=== PATIENT | female | born 1965 | race Caucasian/White ===

== ENCOUNTER 2018-05-22 15:59 | Inpatient (IN) | payer BC ==
[2018-05-22] MEDS ORDERED: NITROGLYCERIN SL TABS 0.4 MG TAB SUBLINGUAL STA ×3 (16:27)
[2018-05-22] MEDS ORDERED: ASPIRIN 81 MG PO STA (16:27)
[2018-05-22] MEDS ORDERED: SODIUM CHLORIDE 0.9% 1,000 ML IV STA (16:27)
--- NOTE | 2018-05-22 16:32 | ED ---
General Adult HPI - General Chief complaint: Chest Pain Stated complaint: chest pain Time Seen by Provider: 05/22/18 16:07 Source: patient, RN notes reviewed Mode of arrival: ambulatory Limitations: no limitations - History of Present Illness Initial comments: Patient is a pleasant 52-year-old female presenting to the emergency Department with complaints of chest discomfort. Onset of symptoms was just prior to arrival. Patient has tightness in her chest. no radiation. No dyspnea however patient admits symptoms do worsen with deep breaths. No nausea. Patient does feel sweaty. Discomfort is somewhat severe at this time. No history of similar symptoms previously. - Related Data Home Medications Medication Instructions Recorded Confirmed Naproxen Sodium [Aleve] 220 mg PO Q12HR PRN 05/22/18 05/22/18 Allergies Allergy/AdvReac Type Severity Reaction Status Date / Time No Known Allergies Allergy Verified 05/22/18 16:42 Review of Systems ROS Statement: Those systems with pertinent positive or pertinent negative responses have been documented in the HPI. ROS Other: All systems not noted in ROS Statement are negative. Constitutional: Denies: fever Eyes: Denies: eye pain ENT: Denies: ear pain Respiratory: Denies: cough, dyspnea Cardiovascular: Reports: chest pain Endocrine: Denies: fatigue Gastrointestinal: Denies: abdominal pain Genitourinary: Denies: dysuria Musculoskeletal: Denies: back pain Skin: Denies: rash Neurological: Denies: weakness Past Medical History Past Medical History: COPD Additional Past Medical History / Comment(s): right hand crushed at work, had sx. History of Any Multi-Drug Resistant Organisms: None Reported Past Surgical History: No Surgical Hx Reported Past Anesthesia/Blood Transfusion Reactions: No Reported Reaction Past Psychological History: No Psychological Hx Reported Smoking Status: Current every day smoker Past Alcohol Use History: None Reported Past Drug Use History: Marijuana General Exam Limitations: no limitations General appearance: alert, other (Patient does appear uncomfortable) Head exam: Present: normocephalic Eye exam: Present: normal appearance Neck exam: Present: normal inspection Respiratory exam: Present: normal lung sounds bilaterally. Absent: chest wall tenderness Cardiovascular Exam: Present: regular rate, normal rhythm Expanded Peripheral pulses: 2+: Radial (R), Radial (L), Dorsalis Pedis (R), Dorsalis Pedis (L) GI/Abdominal exam: Present: soft. Absent: tenderness Extremities exam: Present: normal inspection. Absent: pedal edema, calf tenderness Neurological exam: Present: alert Psychiatric exam: Present: normal affect, normal mood Skin exam: Present: normal color Course Vital Signs 05/22/18 05/22/18 05/22/18 16:01 16:20 16:30 Temperature 98.4 F Pulse Rate 80 79 82 Respiratory 24 24 22 Rate Blood Pressure 138/82 144/93 150/98 O2 Sat by Pulse 99 99 99 Oximetry 05/22/18 16:47 Temperature Pulse Rate 79 Respiratory 20 Rate Blood Pressure 149/91 O2 Sat by Pulse 98 Oximetry - Reevaluation(s) Reevaluation #1: 05/22/18 16:30 STEMI alert was called. Case was discussed in detail with Dr. Paige who did request EKG faxed to him. 05/22/18 16:33 Repeat EKG at 1622 shows sinus rhythm at 75. NJ 122. QRS 92. QT 404. QTC 451. Normal axis. Normal QRS. Inferior ST elevation. 05/22/18 16:35 Old EKG reviewed from 11/15/2014. Case was discussed with Dr. Galvan, covering for Dr. Eddy, who will admit. EKG Findings - EKG Comments: EKG Findings:: EKG shows normal sinus rhythm at 80. NJ 124. QRS 94. QT 388. QTC 447. Normal axis. Normal QRS. Inferior ST elevation. Medical Decision Making - Medical Decision Making Patient reevaluated and improved with nitroglycerin. Patient and family updated on results and plan. Cardiology did call back and plan is to take patient to the [facility]. - Lab Data Result diagrams: 05/22/18 16:30 Lab Results 05/22/18 Range/Units 16:30 WBC 10.1 (3.8-10.6) k/uL RBC 5.02 (3.80-5.40) m/uL Hgb 15.7 (11.4-16.0) gm/dL Hct 47.1 H (34.0-46.0) % MCV 93.8 (80.0-100.0) fL MCH 31.2 (25.0-35.0) pg MCHC 33.3 (31.0-37.0) g/dL RDW 13.2 (11.5-15.5) % Plt Count 311 (150-450) k/uL Neutrophils % 56 % Lymphocytes % 36 % Monocytes % 4 % Eosinophils % 3 % Basophils % 0 % Neutrophils # 5.7 (1.3-7.7) k/uL Lymphocytes # 3.6 (1.0-4.8) k/uL Monocytes # 0.4 (0-1.0) k/uL Eosinophils # 0.3 (0-0.7) k/uL Basophils # 0.0 (0-0.2) k/uL - Radiology Data Interpreted by me: Chest x-ray shows no acute process Critical Care Time Critical Care Time: Yes Total Critical Care Time: 32 Disposition Clinical Impression: ST elevation myocardial infarction (STEMI) Disposition: ADMITTED IP TO THIS HOSP Condition: Serious Is patient prescribed a controlled substance at d/c from ED?: No Referrals: Marbella Laguerre MD [Primary Care Provider] - 1-2 days Decision Time: 16:53
[2018-05-22] MEDS ORDERED: HEPARIN SODIUM 1,000 UN/ML (10ML VL) ONE ×2 (16:41)
[2018-05-22 16:45] LABS: Basophils % (A) 0 %; Eosinophils # (A) 0.3 k/uL (0-0.7); Eosinophils % (A) 3 %; HCT 47.1 % (34.0-46.0); HGB 15.7 gm/dL (11.4-16.0); Lymphocytes # (A) 3.6 k/uL (1.0-4.8); Lymphocytes % (A) 36 %; MCH 31.2 pg (25.0-35.0); MCHC 33.3 g/dL (31.0-37.0); MCV 93.8 fL (80.0-100.0); Mean Platelet Volume 7.5; Monocytes # (A) 0.4 k/uL (0-1.0); Monocytes % (A) 4 %; Neutrophils # (A) 5.7 k/uL (1.3-7.7); Neutrophils % (A) 56 %; Platelet Count 311 k/uL (150-450); RBC 5.02 m/uL (3.80-5.40); RDW 13.2 % (11.5-15.5); WBC 10.1 k/uL (3.8-10.6)
[2018-05-22] MEDS ORDERED: HEPARIN SODIUM,PORCINE 5,000 UNIT/ML 1 ML VIAL IV PRN (16:51)
[2018-05-22] MEDS ORDERED: HEPARIN SODIUM,PORCINE 5,000 UNIT/ML 1 ML VIAL IV ONE (16:51)
[2018-05-22] MEDS ORDERED: HEPARIN SOD,PORK IN 0.45% NACL 25,000 UNIT in 0.45% NACL 1 500ML.BAG IV SCH (17:00)
[2018-05-22] MEDS ORDERED: SODIUM CHLORIDE 0.9% 1,000 ML IV ONE (17:00)
--- NOTE | 2018-05-22 17:00 | XR ---
EXAMINATION TYPE: XR chest 1V portable DATE OF EXAM: 05/22/2018 COMPARISON: 01/16/2015 HISTORY: Heart attack. Chest pain TECHNIQUE: Single frontal view of the chest is obtained. FINDINGS: There is no heart failure nor confluent pneumonic infiltrate. Costophrenic angles are sara r. There are chest leads. Bony thorax appears intact. IMPRESSION: No active cardiopulmonary disease. No change.
[2018-05-22 17:04] LABS: ALT 21 U/L (9-52); AST 22 U/L (14-36); Alkaline Phosphatase 83 U/L (38-126); Anion Gap 8 mmol/L; Blood Urea Nitrogen 26 mg/dL (7-17); Calcium 9.7 mg/dL (8.4-10.2); Carbon Dioxide 24 mmol/L (22-30); Chloride 108 mmol/L (98-107); Glucose 130 mg/dL (74-99); Magnesium 2.3 mg/dL (1.6-2.3); Potassium 4.3 mmol/L (3.5-5.1); Sodium 140 mmol/L (137-145); Total Bilirubin 0.4 mg/dL (0.2-1.3); Total Protein 6.6 g/dL (6.3-8.2)
[2018-05-22 17:08] LABS: INR 0.9 (<1.2); Prothrombin Time 10.1 sec (9.0-12.0)
[2018-05-22] MEDS ORDERED: LIDOCAINE 1% INJ 10MG/ML (20 ML MDV) ONE ×2 (17:09→17:56)
[2018-05-22] MEDS ORDERED: MIDAZOLAM 2 MG/2 ML VIAL IVP ONE (17:11)
[2018-05-22] MEDS ORDERED: LIDOCAINE 1% INJ 10MG/ML (20 ML MDV) SQ ONE ×2 (17:11→17:56)
[2018-05-22] MEDS ORDERED: fentaNYL (PF) 50 MCG/ML 2 ML AMP ONE (17:11)
[2018-05-22] MEDS ORDERED: fentaNYL (PF) 50 MCG/ML 2 ML AMP IVP ONE (17:12)
[2018-05-22 17:16] LABS: Creatine Kinase MB 0.6 ng/mL (0.0-2.4); Troponin I 0.015 ng/mL (0.000-0.034)
[2018-05-22] MEDS ORDERED: BIVALIRUDIN BOLUS 250 MG/50 ML IV ONE (17:22)
[2018-05-22] MEDS ORDERED: BIVALIRUDIN 250 MG in SODIUM CHLORIDE 0.9% 50 ML IV ONE (17:22)
--- NOTE | 2018-05-22 17:25 | P.CRDCN ---
History of Present Illness Consult date: 05/22/18 History of present illness: This is a 52-year-old female with history of smoking and hyperlipidemia who came to the hospital with complaints of chest discomfort described as tightness that started about 45 minutes prior to arrival. There was some discomfort in the left arm also. Patient has no prior history of chemical heart disease. No hypertension or diabetes. Her EKG showed mild ST elevation in inferior leads and mild ST depression in 1 and aVL. Patient is advised to have a cardiac catheterization for definite diagnosis with the intention of primary intervention. Review of Systems Not obtained Past Medical History Past Medical History: COPD Additional Past Medical History / Comment(s): right hand crushed at work, had sx. History of Any Multi-Drug Resistant Organisms: None Reported Past Surgical History: No Surgical Hx Reported Past Anesthesia/Blood Transfusion Reactions: No Reported Reaction Past Psychological History: No Psychological Hx Reported Smoking Status: Current every day smoker Past Alcohol Use History: None Reported Past Drug Use History: Marijuana Medications and Allergies Home Medications Medication Instructions Recorded Confirmed Type Naproxen Sodium [Aleve] 220 mg PO Q12HR PRN 05/22/18 05/22/18 History Allergies Allergy/AdvReac Type Severity Reaction Status Date / Time No Known Allergies Allergy Verified 05/22/18 16:42 Physical Exam Vitals: Vital Signs Temp Pulse Resp BP Pulse Ox 05/22/18 16:47 79 20 149/91 98 05/22/18 16:30 82 22 150/98 99 05/22/18 16:20 79 24 144/93 99 05/22/18 16:01 98.4 F 80 24 138/82 99 Intake and Output 05/22/18 05/22/18 05/22/18 06:59 14:59 22:59 Other: Weight 68.039 kg GENERAL EXAM: Patient is alert and oriented in moderate to severe distress HEENT: Normocephalic. Normal reaction of pupils, equal size, normal range of extraocular motion. No erythema or exudates in the throat. NECK: No masses, no nuchal rigidity. CHEST: No chest wall deformity. LUNGS: Equal air entry with no crackles or wheeze. HEART: S1 and S2 normal ABDOMEN: No hepatosplenomegaly, normal bowel sounds, no guarding or rigidity. SKIN: No rashes CENTRAL NERVOUS SYSTEM: No focal deficits. EXTREMITIES: No cyanosis, clubbing or edema. Results 05/22/18 16:30 05/22/18 16:30 Cardiac Enzymes 05/22/18 05/22/18 Range/Units 16:30 16:30 AST 22 (14-36) U/L CK-MB (CK-2) 0.6 (0.0-2.4) ng/mL Troponin I 0.015 (0.000-0.034) ng/mL Coagulation 05/22/18 Range/Units 16:30 PT 10.1 (9.0-12.0) sec APTT 21.0 L (22.0-30.0) sec CBC 05/22/18 Range/Units 16:30 WBC 10.1 (3.8-10.6) k/uL RBC 5.02 (3.80-5.40) m/uL Hgb 15.7 (11.4-16.0) gm/dL Hct 47.1 H (34.0-46.0) % Plt Count 311 (150-450) k/uL Comprehensive Metabolic Panel 05/22/18 Range/Units 16:30 Sodium 140 (137-145) mmol/L Potassium 4.3 (3.5-5.1) mmol/L Chloride 108 H (98-107) mmol/L Carbon Dioxide 24 (22-30) mmol/L BUN 26 H (7-17) mg/dL Creatinine 0.79 (0.52-1.04) mg/dL Glucose 130 H (74-99) mg/dL Calcium 9.7 (8.4-10.2) mg/dL AST 22 (14-36) U/L ALT 21 (9-52) U/L Alkaline Phosphatase 83 (38-126) U/L Total Protein 6.6 (6.3-8.2) g/dL Albumin 4.0 (3.5-5.0) g/dL Current Medications Generic Name Dose Route Start Last Admin Trade Name Freq PRN Reason Stop Dose Admin Heparin Sodium (Porcine) 0 unit 05/22/18 16:51 Heparin IV PER PROTOCOL PRN Low PTT Protocol Sodium Chloride 1,000 mls @ 100 mls/hr 05/22/18 16:27 05/22/18 16:49 Saline 0.9% IV 05/23/18 02:26 100 mls/hr .Q10H STA Administration Heparin Sodium/Sodium Chloride 500 mls @ 16.32 mls/hr 05/22/18 17:00 16:56 25,000 unit/ Sodium Chloride IV 12 units/kg/hr .Q24H SHEBA 16.32 mls/hr Administration Protocol 12 UNITS/KG/HR Intake and Output 05/22/18 05/22/18 05/22/18 06:59 14:59 22:59 Other: Weight 68.039 kg Patient Weight 05/23/18 06:59 Weight 68.039 kg 05/22/18 16:30 05/22/18 16:30 EKG Interpretations (text) Sinus rhythm with mild ST elevation in inferior leads and ST depressions 1 and aVL Assessment and Plan (1) ST elevation myocardial infarction (STEMI) Current Visit: Yes Status: Acute Code(s): I21.3 - ST ELEVATION (STEMI) MYOCARDIAL INFARCTION OF [facility] SITE SNOMED Code(s): 986089940 (2) Acute exacerbation of chronic obstructive airways disease Current Visit: No Status: Acute Code(s): J44.1 - CHRONIC OBSTRUCTIVE PULMONARY DISEASE W (ACUTE) EXACERBATION SNOMED Code(s): 049758654 Plan: Proceed with cardiac catheterization with the intention of primary intervention
[2018-05-22] MEDS ORDERED: ATROPINE SULFATE 0.1 MG/ML 10ML SYRINGE IVP ONE (17:28)
--- NOTE | 2018-05-22 17:29 | P.CARDCATH ---
Date of Procedure: 05/22/18 Preoperative Diagnosis: Inferior wall GA Postoperative Diagnosis: The same Procedure(s) Performed: Left heart catheterization without left ventriculography Description of Procedure: HISTORY: This is a 52-year-old female who was admitted with chest pain and EKG changes suggestive of inferior wall myocardial infarction CONSENT:I have discussed the risks, benefits and alternative therapies for the above-mentioned procedure and for both sedation/analgesia as well as necessary blood product administration, if indicated, as they pertain to this patient. The patient has indicated understanding and acceptance of the risks and procedures discussed. [] PROCEDURE: Patient was brought to the lab in a fasting state. Patient was given some IV sedation. The right groin is infiltrated with lidocaine and right femoral artery was entered using Seldinger technique. A 6-Austrian catheter was left in place and selective coronary arteriography was performed. Patient tolerated the procedure well. . No immediate complications were noted and patient went on to have primary stent placement of the RCA. Conscious Sedation: Versed 1mg Fentanyl 25 g Duration 9minutes HEMODYNAMICS: Aortic pressure is 129 was 65. Left ventricle end-diastolic pressure was not obtained SELECTIVE CORONARY ARTERIOGRAPHY: LEFT MAIN: Normal length and patent THE LEFT ANTERIOR DESCENDING CORONARY ARTERY:. Good caliber vessel free of any occlusive disease THE LEFT CIRCUMFLEX AND IS CORONARY ARTERY:. Moderate caliber vessel with mild disease THE RIGHT CORONARY ARTERY: Dominant vessel with subtotal occlusion of the distal LAD before bifurcation into PDA and PLV LEFT VENTRICULOGRAPHY: Performed FINAL IMPRESSION: Near-total occlusion of the distal RCA PLAN: Stent placement to be done by Dr. RAHUL Foster PROGNOSIS: Guarded
[2018-05-22] MEDS ORDERED: IOPAMIDOL-370 125ML BTL INJ ONE (17:41)
[2018-05-22] MEDS: NITROGLYCERIN 1000MCG/10ML SYRINGE INTRACORON ONE ×2 (17:45→17:50)
[2018-05-22] MEDS ORDERED: MORPHINE SULFATE 4 MG/ML SYRINGE ONE (17:55)
[2018-05-22] MEDS ORDERED: MORPHINE SULFATE 4 MG/ML SYRINGE IVP ONE (17:55)
[2018-05-22] MEDS ORDERED: TICAGRELOR 90 MG TAB ONE (17:55)
[2018-05-22] MEDS ORDERED: TICAGRELOR 90 MG TAB PO ONE (17:58)
[2018-05-22] MEDS ORDERED: IOPAMIDOL-370 100ML BTL INJ ONE (17:58)
[2018-05-22] MEDS ORDERED: NITROGLYCERIN SL TABS 0.4 MG TAB SUBLINGUAL PRN (18:07)
[2018-05-22] MEDS ORDERED: ZOLPIDEM 5 MG TAB PO PRN (18:07)
[2018-05-22] MEDS ORDERED: ATROPINE SULFATE 0.1 MG/ML 10ML SYRINGE IV PRN (18:07)
[2018-05-22] MEDS ORDERED: MAG HYDROX/AL HYDROX/SIMETH 30 ML CUP PO PRN (18:07)
[2018-05-22] MEDS ORDERED: RX INFO: IV CONTRAST WAS GIVEN 1 EACH MISC MISCELLANE PRN (18:07)
[2018-05-22] MEDS: SODIUM CHLORIDE 0.9% 1,000 ML IV SCH (18:20)
[2018-05-22 18:30] LABS: Glucose,Whole Blood 93 mg/dL (75-99)
--- NOTE | 2018-05-22 18:41 | PTCA ---
PERCUTANEOUSTRANS CORORONARY ANGIOGRAPHY DATE OF SERVICE: 05/22/2018 PTCA and stenting of distal RCA, which was a subtotal occlusion performed in the setting of an acute inferior ST-elevation HI with reperfusion accomplished in 86 minutes. Drug-eluting stent was used. PERFORMED BY: Dr. Ute Foster. SEDATION: Moderate conscious sedation time was 43 minutes. CLINICAL INFORMATION: Mrs. Amy Luis is a 52-year-old lady with a history of smoking and family history of CAD, who takes only Naprosyn p.r.n. for her arthritis pain, came into the hospital with chest pain, was seen and evaluated by Dr. Paige who performed a cardiac cath that revealed a subtotal occlusion of distal RCA with sluggish flow and with a lot of thrombus burden. Left system did not have significant disease. She was advised prompt intervention that was performed expeditiously. PROCEDURE NOTE: The existing 6-German introducer in the right femoral artery was used to perform the procedure. I used a standard right [place] guide catheter to cannulate the right coronary artery. I used a run-through wire to cross the lesion and dilated the total occlusion with a 2.25 caliber 8 mm Trek balloon. This opened the vessel immediately and improved EKG remarkably. The patient was relieved of chest pain. I then repositioned the wire into the main RCA. After multiple attempts I used a J-tip whisper wire. With this, I was able to get a good positioning of the wire in the distal RCA. RCA is a technically dominant vessel, but the distal branches are quite small and the vessel tapers down quite a bit towards the distal aspect. After the wire was in the main RCA distally, I used a 2.5 caliber 12 mm Xience stent and deployed this at 12 atmospheres. Excellent angiographic result was achieved, but the proximal 2/3 of the stent appeared to be under expanded. This was addressed with a 2.5 caliber 8 mm NC Trek balloon at 14 atmospheres. The patient had chest pain, but no significant EKG changes. Excellent angiographic result was achieved. Patient received 180 mg of Brilinta. She also received Angiomax bolus and infusion. The sheath was then taken out and a Perclose device used to secure hemostasis and she was sent to the room in a stable condition. Excellent angiographic result without complication was achieved and reperfusion was accomplished in 86 minutes. Moderate conscious sedation time was 43 minutes. Patient was given Versed and Benadryl and oxygen saturation, hemodynamics and EKG were monitored closely. JJ / THIERNON: [id number] /
[2018-05-22] MEDS: METOPROLOL TARTRATE 12.5 MG TAB PO SCH (22:13)
[2018-05-22] MEDS: LISINOPRIL 5 MG TAB PO SCH (22:13)
[2018-05-22] MEDS: ATORVASTATIN 80 MG TAB PO SCH (22:13)
[2018-05-23] MEDS ORDERED: TEMAZEPAM 15 MG CAP PO PRN (00:14)
[2018-05-23] MEDS ORDERED: ALPRAZolam 0.25 MG TAB PO PRN (00:14)
[2018-05-23] MEDS ORDERED: HYDROcodone/APAP 5-325MG 1 EACH TAB PO PRN (00:14)
[2018-05-23] MEDS: SODIUM CHLORIDE 0.9% 1,000 ML IV SCH (00:18)
[2018-05-23 03:11] LABS: Appearance,Urine Clear (Clear); Bilirubin,Urine Negative (Negative); Blood,Urine Negative (Negative); Color,Urine Yellow; Glucose,Urine (UA) Negative (Negative); Ketones,Urine Negative (Negative); Leukocyte Esterase,Urine Negative (Negative); Nitrite,Urine Negative (Negative); PH, Urine 7.5 (5.0-8.0); Protein,Urine Trace (Negative); Urobilinogen,Urine <2.0 mg/dL (<2.0)
[2018-05-23 03:29] LABS: Specific Gravity,Urine >1.050 (1.001-1.035)
[2018-05-23 05:01] LABS: Basophils % (A) 0 %; Eosinophils # (A) 0.1 k/uL (0-0.7); Eosinophils % (A) 1 %; HCT 42.2 % (34.0-46.0); HGB 13.7 gm/dL (11.4-16.0); Lymphocytes # (A) 1.7 k/uL (1.0-4.8); Lymphocytes % (A) 17 %; MCH 31.6 pg (25.0-35.0); MCHC 32.5 g/dL (31.0-37.0); MCV 97.2 fL (80.0-100.0); Mean Platelet Volume 7.6; Monocytes # (A) 0.4 k/uL (0-1.0); Monocytes % (A) 4 %; Neutrophils # (A) 7.5 k/uL (1.3-7.7); Neutrophils % (A) 76 %; Platelet Count 234 k/uL (150-450); RBC 4.34 m/uL (3.80-5.40); RDW 13.1 % (11.5-15.5); WBC 9.8 k/uL (3.8-10.6)
[2018-05-23 05:16] LABS: Anion Gap 4 mmol/L; Blood Urea Nitrogen 19 mg/dL (7-17); Calcium 8.9 mg/dL (8.4-10.2); Carbon Dioxide 26 mmol/L (22-30); Chloride 109 mmol/L (98-107); Glucose 104 mg/dL (74-99); Potassium 4.3 mmol/L (3.5-5.1); Sodium 139 mmol/L (137-145)
[2018-05-23 05:36] LABS: Troponin I 41.8 ng/mL (0.000-0.034)
[2018-05-23] MEDS: ALBUTEROL NEBULIZED 2.5 MG/3 ML INHALATION PRN ×2 (09:57→14:21)
--- NOTE | 2018-05-23 10:06 | HP ---
HISTORY AND PHYSICAL DATE OF SERVICE: 05/22/2018 CHIEF COMPLAINT: Chest pain. HISTORY OF PRESENT ILLNESS: This is 52-year-old woman with a past history of COPD, history of nicotine dependence, being followed by Dr. Marbella Laguerre in the outpatient setting, was complaining of chest pain. The pain was felt in the lower part and anterior part of the chest which was 10 out of 10 in intensity. The patient's pain was increasing with deep breaths. The patient came to [facility]. ST changes noted in the inferior leads. Patient underwent cardiac catheterization and RCA stenting. Patient admitted for further evaluation and treatment at this time. There is no history of fever, rigors or chills. No history of headache, loss of consciousness, seizures. PAST MEDICAL HISTORY: History of COPD, history of nicotine dependence. History of THC. MEDICATIONS: Prior to admission include home medications are: Naprosyn 220 mg b.i.d. p.r.n. ALLERGIES: None. FAMILY HISTORY: No history of heart disease or strokes in the family. SOCIAL HISTORY: Smoking, THC as mentioned. No history of alcohol. REVIEW OF SYSTEMS: ENT: No diminished hearing or vision. CARDIOVASCULAR: As mentioned earlier. RESPIRATORY: As mentioned earlier. GI: No nausea or vomiting. no dysuria. Nervous system: No numbness or weakness. ALLERGY/IMMUNOLOGY: No asthma or hayfever. MUSCULOSKELETAL: As mentioned earlier. HEMATOLOGY/ONCOLOGY: No history of anemia. ENDOCRINE: No history of diabetes or hypothyroidism. CONSTITUTIONAL: As mentioned earlier. Dermatology: Negative. Rheumatology: Negative. Psychiatry: As mentioned earlier. PHYSICAL EXAMINATION: Alert, oriented x3. Pulse 71, blood pressure 119/72, respiration 15, temperature normal. HEENT: Conjunctivae normal. Oral mucosa moist. NECK is no jugular venous distention. No carotid bruit. No lymph node enlargement. CARDIOVASCULAR: S1, S2. RESPIRATORY: Breath sounds diminished in the bases. No rhonchi. No crackles. ABDOMEN: Soft, nontender. No mass palpable. LEGS: No edema. No swelling. NERVOUS SYSTEM: Higher functions as mentioned earlier. Moves all four extremities. No focal motor or sensory deficits. LYMPHATICS: No lymph nodes palpable in the neck, axillae or groin. SKIN: No ulcer, rash, bleeding. LABS: WBC 10.1, hemoglobin 15.7. ASSESSMENT: 1. Chest pain, acute inferior wall ST-segment elevation myocardial infarction status post cardiac catheterization and stenting of the RCA. 2. History of nicotine dependence. 3. History of chronic obstructive pulmonary disease. 4. History of THC. RECOMMENDATIONS AND DISCUSSION: In this 52-year-old woman who presented with multiple complex medical issues, we will monitor the patient closely, continue the current medications, management and symptomatic treatment. We will continue with beta blockers, dual antiplatelet treatment as well as high-dose Lipitor. Closely follow with Cardiology. Prognosis guarded because of multiple complex medical issues. Smoking cessation has been recommended. Further recommendations to follow. Home medications will be resumed. A copy of dictation being forwarded to Dr. Marbella Laguerre who is the primary physician. MMODL / IJN: [id number] /
[2018-05-23 10:49] VITALS: BMI 24.8
[2018-05-23] MEDS: PANTOPRAZOLE 40 MG TABLET PO SCH (10:49)
[2018-05-23] MEDS: ASPIRIN 81 MG PO SCH (10:50)
[2018-05-23] MEDS: NICOTINE 14MG/24HR PATCH TRANSDERM SCH (10:50)
[2018-05-23] MEDS: CLOPIDOGREL 75 MG TAB PO SCH (10:50)
[2018-05-23] MEDS: METOPROLOL TARTRATE 12.5 MG TAB PO SCH ×2 (13:02→21:02)
--- NOTE | 2018-05-23 16:33 | PN ---
PROGRESS NOTE Mrs. Luis is a lady who underwent stenting of distal RCA with a drug-eluting stent. She is doing very well. She denies chest pain. Stable shortness of breath. Right groin is clean and dry. Her vital signs are stable. S1, S2 heard normally. Lungs reveal scattered rhonchi in both lung jewell. Patient is a smoker. She is on a nicotine patch. Abdomen and lower extremity exam unchanged. Right groin is clean and dry with a good pulse. Plan is to continue current medications, and I will give her some inhalers to improve her wheezing. Plan is to continue current medical regimen, increase activity and hopefully move her to Telemetry tomorrow. MMODL / IJN: [id number] /
--- NOTE | 2018-05-23 18:16 | ECHOF ---
Referral Reason:INF STEMI--S/P RCA PCI MEASUREMENTS -------- HEIGHT: 165.1 cm WEIGHT: 68.9 kg BP: 89/57 RVIDd: 2.7 cm (< 3.3) IVSd: 1.3 cm (0.6 - 1.1) LVIDd: 4.2 cm (3.9 - 5.3) LVPWd: 1.3 cm (0.6 - 1.1) IVSs: 1.5 cm LVIDs: 2.9 cm LVPWs: 1.8 cm LA Diam: 2.7 cm (2.7 - 3.8) LAESV Index (A-L): 22.88 ml/m Ao Diam: 2.6 cm (2.0 - 3.7) AV Cusp: 2.0 cm (1.5 - 2.6) MV EXCURSION: 14.967 mm (> 18.000) MV EF SLOPE: 89 mm/s (70 - 150) EPSS: 0.7 cm MV E Adama: 1.08 m/s MV DecT: 204 ms MV A Adama: 0.91 m/s MV E/A Ratio: 1.19 FINDINGS -------- Sinus rhythm. This was a technically adequate study. The left ventricular size is normal. There is mild concentric left ventricular hypertrophy. Overa ll left ventricular systolic function is mildly impaired with, an EF between 45 - 50 %. Basal infer ior LV wall motion is hypokinetic. Basal inferoseptal LV wall motion is hypokinetic. Mid inferi or LV wall motion is hypokinetic. The right ventricle is normal in size. Normal LA size by volume 22+/-6 ml/m2. The right atrium is normal in size. The aortic valve is trileaflet and appears structurally normal. The mitral valve is normal. Mild mitral regurgitation is present. The tricuspid valve appears structurally normal. The pulmonic valve was not well visualized. There is no pulmonic regurgitation present. The aortic root size is normal. Normal inferior vena cava with normal inspiratory collapse consistent with estimated right atrial pre ssure of 5 mmHg. There is no pericardial effusion. CONCLUSIONS -------- 1. Sinus rhythm. 2. This was a technically adequate study. 3. The left ventricular size is normal. 4. There is mild concentric left ventricular hypertrophy. 5. Overall left ventricular systolic function is mildly impaired with, an EF between 45 - 50 %. 6. Basal inferior LV wall motion is hypokinetic. 7. Basal inferoseptal LV wall motion is hypokinetic. 8. Mid inferior LV wall motion is hypokinetic. 9. The right ventricle is normal in size. 10. Normal LA size by volume 22+/-6 ml/m2. 11. The aortic valve is trileaflet and appears structurally normal. 12. Mild mitral regurgitation is present. 13. The tricuspid valve appears structurally normal. 14. The pulmonic valve was not well visualized. 15. There is no pulmonic regurgitation present. 16. The aortic root size is normal. 17. Normal inferior vena cava with normal inspiratory collapse consistent with estimated right atrial pressure of 5 mmHg. 18. There is no pericardial effusion. MEDICAL TECHNICIAN: Idalia Headley RDCS
--- NOTE | 2018-05-23 18:45 | PN ---
PROGRESS NOTE DATE OF SERVICE: 05/23/2018. This 52-year-old woman was admitted with chest pain, acute inferior wall ST segment elevation myocardial infarction. Had cardiac cath and stenting. No chest pain. No palpitations. No fever. Patient being closely monitored. EXAM: Alert and oriented times three. Pulse is 73, blood pressure 111/50, respiration 14, temperature is normal. Pulse ox 94% on room air. HEENT: Conjunctivae normal. NECK: No jugular venous distention. CARDIOVASCULAR: S1, S2. Respirations: Breath sounds diminished in the bases. A few scattered rhonchi. No crackles. Abdomen is soft, nontender. Legs are no edema. No swelling. CENTRAL NERVOUS SYSTEM: No focal deficits. LABS: CBC within normal limits. Glucose 104. Troponin 41 and 29. ASSESSMENT: 1. Chest pain, acute inferior wall ST-segment elevation myocardial infarction status post cardiac catheterization and stenting of the RCA. 2. History of nicotine dependence. 3. History of chronic obstructive pulmonary disease. 4. History of THC. RECOMMENDATIONS AND DISCUSSION: Recommend to continue current medications, management and symptomatic treatment, continue with dual antiplatelets agents and beta blockers. Closely follow with Cardiology. Guarded prognosis. Further recommendations to follow. MMODL / IJN: [id number] /
[2018-05-23] MEDS: ATORVASTATIN 80 MG TAB PO SCH (21:02)
[2018-05-23] MEDS: LISINOPRIL 5 MG TAB PO SCH (21:02)
[2018-05-24 05:53] LABS: Basophils % (A) 0 %; Eosinophils # (A) 0.1 k/uL (0-0.7); Eosinophils % (A) 1 %; HCT 42.5 % (34.0-46.0); HGB 13.4 gm/dL (11.4-16.0); Lymphocytes # (A) 2.3 k/uL (1.0-4.8); Lymphocytes % (A) 29 %; MCH 30.2 pg (25.0-35.0); MCHC 31.5 g/dL (31.0-37.0); MCV 95.9 fL (80.0-100.0); Mean Platelet Volume 7.3; Monocytes # (A) 0.3 k/uL (0-1.0); Monocytes % (A) 4 %; Neutrophils % (A) 64 %; Platelet Count 255 k/uL (150-450); RBC 4.43 m/uL (3.80-5.40); RDW 13.1 % (11.5-15.5); WBC 7.9 k/uL (3.8-10.6)
[2018-05-24 06:08] LABS: Anion Gap 3 mmol/L; Blood Urea Nitrogen 16 mg/dL (7-17); Calcium 9.1 mg/dL (8.4-10.2); Carbon Dioxide 28 mmol/L (22-30); Chloride 108 mmol/L (98-107); Glucose 101 mg/dL (74-99); Potassium 4.5 mmol/L (3.5-5.1); Sodium 139 mmol/L (137-145)
[2018-05-24] MEDS: PANTOPRAZOLE 40 MG TABLET PO SCH (07:17)
[2018-05-24] MEDS: CLOPIDOGREL 75 MG TAB PO SCH (09:38)
[2018-05-24] MEDS: METOPROLOL TARTRATE 25 MG TAB PO SCH ×2 (09:38→21:13)
[2018-05-24] MEDS: NICOTINE 14MG/24HR PATCH TRANSDERM SCH (09:38)
[2018-05-24] MEDS: ASPIRIN 81 MG PO SCH (09:38)
--- NOTE | 2018-05-24 10:16 | PN ---
PROGRESS NOTE Mrs. Luis underwent stenting of RCA in the setting of an acute ST-elevation PR. She is doing much better today. Denies chest pain. Her right groin is clean and dry with a good pulse. There is a small area of ecchymosis, no hematoma. S1-S2 heard normally. Lungs reveal improved air entry with less rhonchi. Abdomen and lower extremity exam is unchanged. PLAN: Increase activity and increase metoprolol tartrate from 12.5 mg b.i.d. to 25 mg b.i.d. Discussed my thoughts in detail with the patient. She can be moved to telemetry and hopefully discharge in the next [address] Paige in the office in 2 weeks. MMODL / IJN: [id number] /
--- NOTE | 2018-05-24 16:15 | P.PN ---
Subjective Progress Note Date: 05/24/18 Progress note being dictated for Dr. Diez. Interval history: This a 52-year-old female admitted with acute inferior wall STEMI, status post cardiac cath with stenting. Continues to do well, reports no chest pain, no shortness of breath, no lightheadedness or dizziness. Telemetry sinus rhythm. Beta donell increased as per cardiology. 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 Objective - Vital Signs Vital signs: Vital Signs Temp 98.9 F 05/24/18 15:00 Pulse 80 05/24/18 15:00 Resp 23 05/24/18 15:00 BP 110/71 05/24/18 15:00 Pulse Ox 98 05/24/18 15:00 Intake & Output 05/23/18 05/24/18 05/24/18 18:59 06:59 18:59 Intake Total 900 500 800 Output Total 800 0 400 Balance 100 500 400 Weight 67.8 kg 66.1 kg Intake: IV 300 Sodium Chloride 0.9% 1, 300 000 ml @ 100 mls/hr IV . Q10H SHEBA Rx#:[id number] Oral 600 500 800 Output: Urine 800 0 400 Other: Voiding Method Toilet Toilet Toilet # Voids 1 1 2 - Exam PHYSICAL EXAM: VITAL SIGNS: As above GENERAL: Sitting up in bed, no acute distress HEENT: Conjunctivae normal. eyes normal. Oral mucosa moist NECK: No JVD. No thyroid enlargement. No LNs CARDIOVASCULAR: S1, S2 muffled. No murmur RESPIRATION: Breath sounds diminished in the bases. Occasional fine scattered rhonchi, no crackles. ABDOMEN: Soft, nontender . No guarding. no masses palpable. Bowel sounds heard. LEGS: No edema. no swelling PSYCHIATRY: Alert and oriented -3, mood and affect normal. NERVOUS SYSTEM: Cranial N 2-12 grossly normal. Moves all 4 limbs. Diffuse weakness No focal deficits. Skin: no ulcer no rash - Labs CBC & Chem 7: 05/24/18 05:37 05/24/18 05:37 Labs: Abnormal Lab Results - Last 24 Hours (Table) 05/24/18 Range/Units 05:37 Chloride 108 H (98-107) mmol/L Glucose 101 H (74-99) mg/dL Assessment and Plan Assessment: -Chest pain, acute inferior wall STEMI, status post trach catheterization, stenting of RCA -Ongoing nicotine dependence -COPD -History of THC use. Plan: Continue current medication regime ,monitoring and symptomatic treatment. Continue on dual antiplatelets, increased beta donell. Cleared for transfer out of ICU to telemetry unit. Increase activity as tolerated. Discharge planning in progress for tomorrow pending cardiology clearance. The impression and plan of care has been dictated as directed. : I performed a history and examination of this patient, discussed the same with the dictator. I agree with the dictator's note ,documented as a scribe. Any additional findings or plans will be noted.
[2018-05-24] MEDS: ATORVASTATIN 80 MG TAB PO SCH (21:13)
[2018-05-24] MEDS: LISINOPRIL 5 MG TAB PO SCH (21:13)
[2018-05-25 06:00] LABS: Basophils % (A) 0 %; Eosinophils # (A) 0.1 k/uL (0-0.7); Eosinophils % (A) 1 %; HCT 45.7 % (34.0-46.0); HGB 15.4 gm/dL (11.4-16.0); Lymphocytes # (A) 2.5 k/uL (1.0-4.8); Lymphocytes % (A) 29 %; MCH 31.9 pg (25.0-35.0); MCHC 33.7 g/dL (31.0-37.0); MCV 94.9 fL (80.0-100.0); Mean Platelet Volume 7.4; Monocytes # (A) 0.4 k/uL (0-1.0); Monocytes % (A) 4 %; Neutrophils # (A) 5.4 k/uL (1.3-7.7); Neutrophils % (A) 64 %; Platelet Count 262 k/uL (150-450); RBC 4.81 m/uL (3.80-5.40); WBC 8.5 k/uL (3.8-10.6)
[2018-05-25 06:12] LABS: Anion Gap 7 mmol/L; Blood Urea Nitrogen 20 mg/dL (7-17); Calcium 9.6 mg/dL (8.4-10.2); Carbon Dioxide 26 mmol/L (22-30); Chloride 108 mmol/L (98-107); Glucose 105 mg/dL (74-99); Potassium 4.6 mmol/L (3.5-5.1); Sodium 141 mmol/L (137-145)
[2018-05-25] MEDS: CLOPIDOGREL 75 MG TAB PO SCH (09:27)
[2018-05-25] MEDS: ASPIRIN 81 MG PO SCH (09:27)
[2018-05-25] MEDS: METOPROLOL TARTRATE 25 MG TAB PO SCH (09:27)
[2018-05-25] MEDS: PANTOPRAZOLE 40 MG TABLET PO SCH (09:27)
[2018-05-25] MEDS: NICOTINE 14MG/24HR PATCH TRANSDERM SCH (09:28)
[2018-05-25 12:20] VITALS: BP 121/71; PULSE 69; RESP 15; TEMP 98.1
--- NOTE | 2018-05-25 20:26 | DS ---
DISCHARGE SUMMARY DATE OF SERVICE: 05/25/2018 FINAL DIAGNOSES: 1. Chest pain, acute inferior wall ST-segment elevation inferior myocardial infarction status post cardiac catheterization, stenting of the RCA. 2. Continued ongoing nicotine dependence. 3. Chronic obstructive pulmonary disease. 4. History of THC. 5. Chronic systolic dysfunction ejection fraction 45 to 50%. DISCHARGE DISPOSITION: The patient is being discharged in stable condition with guarded prognosis. HISTORY OF PRESENT ILLNESS: This 52-year-old woman with a past medical history of multiple medical problems, admitted with acute ST-segment elevation myocardial infarction. The patient was treated in conjunction with Cardiology, who performed a cardiac catheterization, RCA stenting. Patient improved significantly. On exam, vital signs stable. Cardiovascular: S1, S2. Abdomen soft. Nervous system: No focal deficits. 2D echo showed EF 45 to 50%. DISCHARGE ADVICE AND MEDICATIONS: 1. Diet is cardiac. 2. Activity limited until follow up. 3. Follow up with Dr. Marbella Laguerre in 2-3 days. 4. Follow with Cardiology as recommended. MEDICATIONS: 1. Aspirin 81 mg p.o. daily. 2. Lipitor 80 mg q.h.s. 3. Plavix 75 mg p.o. daily. 4. Zestril 5 mg q.h.s. 5. Lopressor 25 mg p.o. b.i.d. 6. Habitrol 14 daily. 7. Nitrostat 0.4 sublingual p.r.n. 8. Protonix 40 mg daily. MMODL / THIERNON: [id number] /
--- NOTE | 2018-05-26 09:27 | PN ---
PROGRESS NOTE Mrs. Luis suffered from inferior STEMI, underwent stenting of RCA. She is doing well, recovering nicely. Vitals are stable. S1, S2 heard normally. Lungs reveal improved air entry. Abdomen and lower extremity exam unchanged. Plan is to discharge her today and she will see Dr. Paige within 2 weeks. Importance of dual antiplatelet therapy, beta blockers and statins were discussed. Patient will follow through and I have also counseled regarding the need to quit smoking. MMODL / IJN: [id number] / QUENTIN
== END 2018-05-25 14:06 | disposition home or self-care (01) | DRG 247 ==
LOC: EC 15:59 → 2SICU 16:45
PROVIDERS: ADMIT Internal Medicine; ATTEND Internal Medicine
PROC: 4A023N7 Measurement of Cardiac Sampling and Pressure, Left Heart, Percutaneous Approach (ICD-10-PCS; principal; 2018-05-22 16:54)
PROC: B2111ZZ Fluoroscopy of Multiple Coronary Arteries using Low Osmolar Contrast (ICD-10-PCS; principal; 2018-05-22 16:54)
PROC: 027034Z Dilation of Coronary Artery, One Artery with Drug-eluting Intraluminal Device, Percutaneous Approach (ICD-10-PCS; 2018-05-22 16:54)
DX: I21.19 ST elevation (STEMI) myocardial infarction involving other coronary artery of inferior wall (principal); J44.1 Chronic obstructive pulmonary disease with (acute) exacerbation; I50.22 Chronic systolic (congestive) heart failure; E78.5 Hyperlipidemia, unspecified; F17.200 Nicotine dependence, unspecified, uncomplicated; I25.10 Atherosclerotic heart disease of native coronary artery without angina pectoris; M19.90 Unspecified osteoarthritis, unspecified site; Z95.5 Presence of coronary angioplasty implant and graft; Z71.6 Tobacco abuse counseling; Z79.1 Long term (current) use of non-steroidal anti-inflammatories (NSAID)
CPT/HCPCS: 36415; 71045; 80048; 80053; 81003; 82550; 82553; 83735; 84484; 85025; 85610; 85730; 93005; 93306; 93454; 94640; 96374; 99291; C1874

== ENCOUNTER → 2021-05-09 | Outpatient (CLI) | payer BC ==
[2021-05-09 17:07] LABS: African American GFR (CKD) >90 (>60 ml/min/1.73 sqM); Blood Urea Nitrogen 25 mg/dL (7-17); Non-African American GFR(CKD) >90 (>60 ml/min/1.73 sqM)
--- NOTE | 2021-05-10 17:44 | CT ---
EXAMINATION TYPE: CT chest wo/w con DATE OF EXAM: 05/09/2021 COMPARISON: Chest x-ray May 22, 2018 HISTORY: Cough, right lower lobe pulmonary nodule. CT DLP: 666.4 mGycm. Automated Exposure Control for Dose Reduction was Utilized. TECHNIQUE: CT scan of the thorax is performed following without and with IV Contrast, patient inject ed with 100 mL of Isovue M300. FINDINGS: LUNGS: New suspicious lobulated right lower lobe mass measuring 3.8 x 3.4 x 4.3 cm axial image 38 and sagittal image 25 with an additional elongated component laterally inferiorly that has some peripher al 6 mm calcification focus. There is additional 1.3 cm more central right lower lobe nodule axial im age 40 The lesion shows heterogeneous postcontrast enhancement. Mild emphysematous change in the uppe r lungs. Left lung has 7 mm groundglass nodule in the left lower lobe posteriorly axial image 35. No pleural effusion or pneumothorax seen bilaterally. MEDIASTINUM: There are prominent but subcentimeter right hilar lymph nodes. Borderline subcarinal lym ph node axial image 27 measuring 1.8 x 0.9 cm. No pericardial effusion is seen. Heart size upper alas its of normal. Dense coronary artery calcification in the RCA distribution. There is 4 vessel origins from the aortic arch which is normal variant. OTHER: Liver is diffusely low dense consistent with diffuse fatty infiltration. Heterogeneous 2.9 cm left adrenal mass has Hounsfield units -11 on noncontrast images suggesting benign lipid rich adenoma . Heterogeneous postcontrast enhancement is seen. IMPRESSION: Heterogeneous enhancing right lower lobe mass with additional central 1.3 cm right lower lobe nodule worrisome for malignancy. Nonspecific subcarinal lymph node. There is 2.9 cm low dense le ft adrenal mass favoring benign lipid rich adenoma. No suspicious acute pulmonary process. Follow-up PET/CT and/or CT-guided biopsy is advised.
== END | disposition home or self-care (01) ==
LOC: RADCTMAIN 16:20
PROVIDERS: ATTEND Family Medicine
DX: R91.1 Solitary pulmonary nodule (principal); R05.3 Chronic cough; R93.89 Abnormal findings on diagnostic imaging of other specified body structures
CPT/HCPCS: 82565; 84520; 71270; 36415; Q9967

== ENCOUNTER 2021-06-02 18:18 | Emergency (ER) | payer BC, OTHER ==
[2021-06-02] MEDS ORDERED: SODIUM CHLORIDE 0.9% 500 ML 500 ML IV STA (19:02)
[2021-06-02] MEDS ORDERED: MORPHINE SULFATE 2 MG/ML SYRINGE IVP STA (19:03)
[2021-06-02] MEDS ORDERED: ONDANSETRON 4 MG/2 ML VIAL IVP STA (19:03)
--- NOTE | 2021-06-02 19:25 | ED ---
General Adult HPI - General Chief complaint: Altered Mental Status Stated complaint: recent falls Time Seen by Provider: 06/02/21 18:53 Source: patient, family Mode of arrival: EMS Limitations: altered mental status, physical limitation - History of Present Illness Initial comments: 55 year-old female patient presents for evaluation of headache that started on Wednesday. States that the pain is frontal between her eyes. States she has had multiple falls since onset of the headache. states she is weak. States that he noticed facial droop when they woke up around 11:30 this morning. Denies difficulty with speech. He states she has been very sleepy for the last three days. She did take advil and zyrtec on Wednesday without relief of the headache. She denies any numbness or tingling to the extremities. Denies blurred or double vision. Denies chest pain or shortness of breath. She does have a cardiac stent. Does not take any blood thinners. Patient denies any recent rash, fever, chills, cough, abdominal pain, diarrhea, constipation, back pain, hematuria, dysuria, urinary urgency, urinary frequency, or any other complaints. - Related Data Home Medications Medication Instructions Recorded Confirmed Cetirizine HCl [Zyrtec] 10 mg PO DAILY 06/02/21 06/02/21 Naproxen Sodium [Aleve] 880 mg PO DAILY PRN 06/02/21 06/02/21 Allergies Allergy/AdvReac Type Severity Reaction Status Date / Time No Known Allergies Allergy Verified 06/02/21 18:45 Review of Systems ROS Statement: Those systems with pertinent positive or pertinent negative responses have been documented in the HPI. ROS Other: All systems not noted in ROS Statement are negative. Past Medical History Past Medical History: Coronary Artery Disease (CAD), COPD Additional Past Medical History / Comment(s): right hand crushed at work, had sx. History of Any Multi-Drug Resistant Organisms: None Reported Past Surgical History: No Surgical Hx Reported, Heart Catheterization With Stent Additional Past Surgical History / Comment(s): tendon repair right hand. Past Anesthesia/Blood Transfusion Reactions: No Reported Reaction Past Psychological History: No Psychological Hx Reported Smoking Status: Current every day smoker Past Alcohol Use History: None Reported Past Drug Use History: Marijuana General Exam Limitations: altered mental status, physical limitation General appearance: in no apparent distress, other (This is a well-developed, well-nourished adult female patient.) Eye exam: Present: PERRL, EOMI, periorbital swelling (Bilateral), other (Proptosis right eye). Absent: scleral icterus, conjunctival injection, nystagmus ENT exam: Present: normal exam, normal oropharynx, mucous membranes moist Neck exam: Present: normal inspection, full ROM. Absent: tenderness, meningismus, lymphadenopathy Respiratory exam: Present: normal lung sounds bilaterally. Absent: respiratory distress, wheezes, rales, rhonchi, stridor Cardiovascular Exam: Present: regular rate, normal rhythm, normal heart sounds. Absent: systolic murmur, diastolic murmur, rubs, gallop, clicks GI/Abdominal exam: Present: soft, normal bowel sounds. Absent: distended, tend erness, guarding, rebound, rigid Neurological exam: Present: oriented X3, CN II-XII intact. Absent: alert (drowsy) Expanded Neurological exam: Present: inattentive Speech: Present: fluid speech Cranial nerves: EOM's Intact: Normal, Tongue Deviation: Normal, Nystagmus: Normal Upper motor neuron: Pronator Drift: Normal Motor strength exam: RUE: 5, LUE: 5, RLE: 5, LLE: 5 Eye Response: (4) open spontaneously Motor Response: (6) obeys commands Verbal Response: (5) oriented Roxana Total: 15 Psychiatric exam: Present: normal affect, normal mood Skin exam: Present: warm, dry, intact, normal color. Absent: rash Course Vital Signs 06/02/21 06/02/21 06/02/21 18:38 19:54 20:00 Temperature 97.6 F Pulse Rate 108 H 101 H 82 Respiratory 18 16 18 Rate Blood Pressure 131/96 143/93 142/90 O2 Sat by Pulse 95 97 97 Oximetry 06/02/21 06/03/21 06/03/21 20:30 01:58 04:02 Temperature Pulse Rate 99 74 93 Respiratory 16 16 18 Rate Blood Pressure 142/90 144/70 152/92 O2 Sat by Pulse 97 100 98 Oximetry 06/03/21 06/03/21 06/03/21 05:26 06:00 07:00 Temperature Pulse Rate 84 99 77 Respiratory 17 18 18 Rate Blood Pressure 167/86 152/92 156/82 O2 Sat by Pulse 97 97 97 Oximetry 06/03/21 06/03/21 09:29 13:00 Temperature 99.5 F Pulse Rate 80 81 Respiratory 18 16 Rate Blood Pressure 119/71 129/80 O2 Sat by Pulse 97 95 Oximetry - Reevaluation(s) Reevaluation #1: 06/02/21 19:48 CT showed large brain mass with mass effect. Will start the transfer process. Family is agreeable to transfer. Reevaluation #2: 06/03/21 16:37 Spoke to transfer team at [facility]. They state they do have a discharge and they will most likely be able to transfer to their facility tonight. I did re-evaluate the patient today. She seems much more alert and attentive to questions. Seems like she is having trouble remembering the course of events today. Nursing staff states she did have some food. She states she is feeling somewhat better with the steroids. Denies any headache today. Denies any visual changes, numbness, tingling, or weakness to the extremities. Denies chest pain, shortness of breath, or cough. is at bedside. General: Well-developed well-nourished distress HEENT: Normocephalic/atraumatic, PERLL, pharynx erythema, swallowing well, proptosis right eye Neck: Supple, nontender, trachea midline Chest/Lungs: Normal respirations, no signs of respiratory distress clear to auscultation bilaterally no wheezes, rales, rhonchi Cardiac: Regular rate and rhythm, normal S1-S2, no murmurs rubs or gallops Abdomen/GI: Soft nontender, bowel sounds equal or quadrant x4, no guarding, no rebound no CVA tenderness : Deferred Musculoskeletal: Nontender, full range of motion, no edema, strength equal bilaterally Skin: Warmth, no rashes or lesions, no cyanosis or diaphoresis Neurologic: AAO x 1, CN 2-12 intact Psychiatric: Mood and affect normal, judgment normal EKG Findings - EKG Comments: EKG Findings:: EKG obtained at 1959 shows normal sinus rhythm with a prolonged QT interval. Ventricular rate is 93, ID interval 120, QRS duration 94, QT 396, QTc 492. No significant ST elevation or depression. Medical Decision Making - Medical Decision Making 55-year-old female patient presents to the emergency department with a four-day history of headaches and frequent falls. Patient does have left-sided facial droop states that started today when they awoke. Patient has been very sleepy. She did have a brief episode of memory loss and April for which she did have outpatient MRI ordered but never had the test completed. She did have a chest CT at that time and showed evidence for a mass in the right lower lobe. Patient will be transferred to outside facility for further evaluation of her neurologic symptoms and new finding of brain tumor. I did discuss findings and results with the family they're agreeable. Called multiple facilities for transfer, [facility], [facility], [facility], [facility], [facility] [place], [facility] [place], all declined. [facility] initially declined. Neurosurgeon Dr. Lavon Diana called back, did accept her as a patient. She will be transferred tomorrow to [facility]. For ease of transfer she will be maintained as an ED patient. We did start Dexamethasone, will continue q6h. Patient's vital signs are stable. Pain is improved. We will continue to monitor. - Lab Data Result diagrams: 06/02/21 19:43 06/02/21 19:43 Lab Results 06/02/21 06/02/21 06/02/21 Range/Units 19:43 19:43 19:43 WBC 14.1 H (3.8-10.6) k/uL RBC 5.81 H (3.80-5.40) m/uL Hgb 18.2 H (11.4-16.0) gm/dL Hct 54.6 H (34.0-46.0) % MCV 94.0 (80.0-100.0) fL MCH 31.3 (25.0-35.0) pg MCHC 33.3 (31.0-37.0) g/dL RDW 13.3 (11.5-15.5) % Plt Count 314 (150-450) k/uL MPV 8.1 Neutrophils % 77 % Lymphocytes % 16 % Monocytes % 4 % Eosinophils % 1 % Basophils % 0 % Neutrophils # 10.9 H (1.3-7.7) k/uL Lymphocytes # 2.3 (1.0-4.8) k/uL Monocytes # 0.6 (0-1.0) k/uL Eosinophils # 0.2 (0-0.7) k/uL Basophils # 0.1 (0-0.2) k/uL PT 11.1 (9.0-12.0) sec INR 1.0 (<1.2) APTT 22.6 (22.0-30.0) sec Sodium 139 (137-145) mmol/L Potassium 4.3 (3.5-5.1) mmol/L Chloride 103 (98-107) mmol/L Carbon Dioxide 23 (22-30) mmol/L Anion Gap 13 mmol/L BUN 31 H (7-17) mg/dL Creatinine 0.59 (0.52-1.04) mg/dL Est GFR (CKD-EPI)AfAm >90 (>60 ml/min/1.73 sqM) Est GFR (CKD-EPI)NonAf >90 (>60 ml/min/1.73 sqM) Glucose 116 H (74-99) mg/dL Calcium 10.1 (8.4-10.2) mg/dL Total Bilirubin 0.7 (0.2-1.3) mg/dL AST 31 (14-36) U/L ALT 29 (4-34) U/L Alkaline Phosphatase 82 (38-126) U/L Troponin I (0.000-0.034) ng/mL Total Protein 7.3 (6.3-8.2) g/dL Albumin 4.5 (3.5-5.0) g/dL TSH 0.136 L (0.465-4.680) mIU/L Free T4 (0.78-2.19) ng/dL Coronavirus (PCR) (Not Detectd) 06/02/21 06/02/21 06/02/21 Range/Units 19:43 19:43 20:06 WBC (3.8-10.6) k/uL RBC (3.80-5.40) m/uL Hgb (11.4-16.0) gm/dL Hct (34.0-46.0) % MCV (80.0-100.0) fL MCH (25.0-35.0) pg MCHC (31.0-37.0) g/dL RDW (11.5-15.5) % Plt Count (150-450) k/uL MPV Neutrophils % % Lymphocytes % % Monocytes % % Eosinophils % % Basophils % % Neutrophils # (1.3-7.7) k/uL Lymphocytes # (1.0-4.8) k/uL Monocytes # (0-1.0) k/uL Eosinophils # (0-0.7) k/uL Basophils # (0-0.2) k/uL PT (9.0-12.0) sec INR (<1.2) APTT (22.0-30.0) sec Sodium (137-145) mmol/L Potassium (3.5-5.1) mmol/L Chloride (98-107) mmol/L Carbon Dioxide (22-30) mmol/L Anion Gap mmol/L BUN (7-17) mg/dL Creatinine (0.52-1.04) mg/dL Est GFR (CKD-EPI)AfAm (>60 ml/min/1.73 sqM) Est GFR (CKD-EPI)NonAf (>60 ml/min/1.73 sqM) Glucose (74-99) mg/dL Calcium (8.4-10.2) mg/dL Total Bilirubin (0.2-1.3) mg/dL AST (14-36) U/L ALT (4-34) U/L Alkaline Phosphatase (38-126) U/L Troponin I <0.012 (0.000-0.034) ng/mL Total Protein (6.3-8.2) g/dL Albumin (3.5-5.0) g/dL TSH (0.465-4.680) mIU/L Free T4 1.76 (0.78-2.19) ng/dL Coronavirus (PCR) Not Detected (Not Detectd) - Radiology Data Radiology results: report reviewed, image reviewed Two-view x-ray of the chest shows right lower lobe masslike density could be primary lung tumor. This appears new compared to old exam. No heart failure. CT brain without contrast was obtained. Report was reviewed in its entirety. Impression by Dr. Bravo shows large right posterior frontal lobe intra-axial masses significant surrounding edema possibly related to primary brain tumor. Metastatic disease of brain abscess also possible. There is masslike density in the right lower lobe of the chest x-ray today and therefore metastatic disease is more likely. There is mass effect. Disposition Clinical Impression: Brain mass, Right lower lobe lung mass, Neoplasm causing mass effect on adjacent structures, Neurocognitive deficits Disposition: OTHER INSTITUTION NOT DEFINED Condition: Serious Referrals: Johanna Calderon DO [Primary Care Provider] - 1-2 days - Out of Hospital Transfer - Req. Specs Out of Hospital Transfer - Requested Specifics: Other Emergency Center ([facility])
--- NOTE | 2021-06-02 19:43 | XR ---
EXAMINATION TYPE: XR chest 2V DATE OF EXAM: 06/02/2021 COMPARISON: 05/22/2018 HISTORY: Altered mental status TECHNIQUE: Single view FINDINGS: There is rounded 4.4 cm masslike density in the right lower lobe heart is borderline enlarg ed. There is no heart failure. Left lung is fairly clear. There are chest leads. IMPRESSION: Right lower lobe masslike density could be primary lung tumor. This appears new compared to old exam. No heart failure.
--- NOTE | 2021-06-02 19:44 | CT ---
EXAMINATION TYPE: CT brain wo con DATE OF EXAM: 06/02/2021 COMPARISON: None HISTORY: ams CT DLP: 2194.4 mGycm Automated exposure control for dose reduction was used. Images of the brain obtained without contrast. There is 4 cm somewhat rounded mass in the right posterior frontal lobe with central hypodensity. The re is mass effect upon the right lateral ventricle. There is midline shift to the left side. There is effacement of the right lateral ventricle. Midline shift is approximately 1.5 cm. There is no eviden ce of intracranial hemorrhage. The calvarium is intact. Fourth ventricle appears normal. There is derrick e effacement of the third ventricle. IMPRESSION: Large right posterior frontal lobe intra-axial mass with significant surrounding edema possibly relat ed to primary brain tumor. Metastatic disease or brain abscess also possible. This patient has a mass like density in the right lower lobe on the chest x-ray today and therefore metastatic disease is mor e likely. There is mass effect.
[2021-06-02 19:56] LABS: Basophils # (A) 0.1 k/uL (0-0.2); Basophils % (A) 0 %; Eosinophils # (A) 0.2 k/uL (0-0.7); Eosinophils % (A) 1 %; HCT 54.6 % (34.0-46.0); HGB 18.2 gm/dL (11.4-16.0); Lymphocytes # (A) 2.3 k/uL (1.0-4.8); Lymphocytes % (A) 16 %; MCH 31.3 pg (25.0-35.0); MCHC 33.3 g/dL (31.0-37.0); Mean Platelet Volume 8.1; Monocytes # (A) 0.6 k/uL (0-1.0); Monocytes % (A) 4 %; Neutrophils # (A) 10.9 k/uL (1.3-7.7); Neutrophils % (A) 77 %; Platelet Count 314 k/uL (150-450); RBC 5.81 m/uL (3.80-5.40); RDW 13.3 % (11.5-15.5); WBC 14.1 k/uL (3.8-10.6)
[2021-06-02 20:05] LABS: Partial Thromboplastin Time 22.6 sec (22.0-30.0); Prothrombin Time 11.1 sec (9.0-12.0)
[2021-06-02 20:07] LABS: ALT 29 U/L (4-34); AST 31 U/L (14-36); African American GFR (CKD) >90 (>60 ml/min/1.73 sqM); Albumin 4.5 g/dL (3.5-5.0); Alkaline Phosphatase 82 U/L (38-126); Anion Gap 13 mmol/L; Blood Urea Nitrogen 31 mg/dL (7-17); Calcium 10.1 mg/dL (8.4-10.2); Carbon Dioxide 23 mmol/L (22-30); Chloride 103 mmol/L (98-107); Glucose 116 mg/dL (74-99); Non-African American GFR(CKD) >90 (>60 ml/min/1.73 sqM); Potassium 4.3 mmol/L (3.5-5.1); Sodium 139 mmol/L (137-145); Total Bilirubin 0.7 mg/dL (0.2-1.3); Total Protein 7.3 g/dL (6.3-8.2)
[2021-06-02] MEDS ORDERED: DEXAMETHASONE SOD PHOSPHATE 10 MG/ML 1 ML VIAL IVP STA (20:49)
[2021-06-02] MEDS ORDERED: MORPHINE SULFATE 2 MG/ML SYRINGE IVP PRN (22:18)
[2021-06-03] MEDS: DEXAMETHASONE SOD PHOSPHATE 4 MG/ML 1 ML VIAL IVP SCH ×4 (01:03→19:54)
[2021-06-03 17:32] VITALS: RESP 18; TEMP 97.9
[2021-06-03 19:55] VITALS: BP 113/86; PULSE 92
== END 2021-06-03 20:04 | disposition other institution (70) ==
LOC: EC 18:18
DX: R22.0 Localized swelling, mass and lump, head (principal); F17.200 Nicotine dependence, unspecified, uncomplicated; J44.9 Chronic obstructive pulmonary disease, unspecified; Z20.822 Contact with and (suspected) exposure to COVID-19
CPT/HCPCS: 36415; 93005; 84439; 80053; 84443; 84484; 85025; 85610; 85730; 87635 ×2; 71046; 70450; 99285; 96374; 96376; 96375; 96361; J1100 ×2; J2405; J2270

== ENCOUNTER → 2022-07-15 | Outpatient (CLI) | payer OTHER ==
--- NOTE | 2022-07-15 10:13 | BD ---
EXAMINATION TYPE: Axial Bone Density DATE OF EXAM: 07/15/2022 COMPARISON: NONE CLINICAL HISTORY: 57 year old Female. ICD-10 CODE: N95.1 MEN[address] AND FEMALE [address]IMACTERIC ST Height: 63 Weight: 167.5 FRAX RISK QUESTIONS: Alcohol (3 or more units per day): no Family History (Parent hip fracture): no Glucocorticoids (More than 3mos): no (Ex: prednisone, prednisolone, methylprednisolone, dexamethasone, and hydrocortisone). History of Fracture in Adulthood: no Secondary Osteoporosis: 1. Type 1 Diabetes: no 2. Hyperthyroidism: no 3. Menopause before 45: no 4. Malnutrition: no 5. Chronic liver disease: no Rheumatoid Arthritis: no Current Tobacco Use: yes RISK FACTORS HISTORY OF: Surgery to Spine/Hip(right/left)/Wrist (right/left): no Family History of Osteoporosis: no Active: yes Diet low in dairy products/other sources of calcium: yes Postmenopausal woman: yes Lost more than 2 inches in height since high school: no MEDICATIONS: Thyroid Medications: levothyroxine How Lon weeks Additional History: EXAM MEASUREMENTS: Bone mineral densitometry was performed using the Bidgely System. Bone mineral density as measured about the Lumbar spine is: ----- L1-L4(G/cm2): 1.125 T Score Values are as follows: ----- L1: -0.3 ----- L2: -1.1 ----- L3: -0.4 ----- L4: -0.2 ----- L1-L4: -0.5 Bone mineral density : baseline Bone mineral density about the R hip (g/cm2): 0.725 Bone mineral density about the L hip (g/cm2): 0.840 T Score values are as follows: -----R Neck: -2.2 -----L Neck: -1.4 -----R Total: -1.4 -----L Total: -0.4 Bone mineral density : baseline FRAX%s: The graph provided illustrates a 9.6% chance for a major osteoporotic fx and a 2.3% chance fo r the hips probability for fx in 10 years time. IMPRESSION: Osteopenia (T Score between -2.5 and -1). There is slightly increased risk of fracture and the patient may be considered for treatment. Re-Screen 2-5 years. NOTE: T-SCORE=SD OF THE YOUNG ADULT MEAN.
--- NOTE | 2022-07-15 10:21 | MM ---
Reason for Exam: Screening (asymptomatic). Baseline mammogram. Patient History: Menarche at age 16. First Full-Term at age 21. Postmenopausal. Patient used Hormonal Contraceptives for 3 years. Risk Values: Trang 5 year model risk: 1.0%. NCI Lifetime model risk: 6.5%. Prior Study Comparison: Patient's first Mammogram. Tissue Density: The breast tissue is heterogeneously dense. This may lower the sensitivity of mammography. Findings: Analyzed By CAD. Focal asymmetry left breast inferiorly on MLO view approximately 4.5 cm nipple measuring 5.9 mm and on CC view measuring 3.8 from the nipple. No evidence for suspicious mass, distortion or calcification of the right breast. Overall Assessment: Incomplete: need additional imaging evaluation, BI-RAD 0 Management: Diagnostic Mammogram of the left breast. A clinical breast exam by your physician is recommended on an annual basis and results should be correlated with mammographic findings. [facility] will attempt to contact patient to return for supplemental views and ultrasound if indicated. Electronically signed and approved by: Jayce Fischer DO
== END | disposition home or self-care (01) ==
LOC: RADMAMWWP 08:45
PROVIDERS: ATTEND Family Medicine
DX: Z12.31 Encounter for screening mammogram for malignant neoplasm of breast (principal); Z00.00 Encounter for general adult medical examination without abnormal findings; M85.89 Other specified disorders of bone density and structure, multiple sites; N95.1 Menopausal and female climacteric states
CPT/HCPCS: 77067; 77080

== ENCOUNTER → 2022-11-07 | Outpatient (CLI) | payer OTHER ==
--- NOTE | 2022-11-07 13:48 | MR ---
EXAMINATION TYPE: MR brain wo/w con DATE OF EXAM: 11/07/2022 COMPARISON: Prior MRI brain August 10, 2022 HISTORY: F/U malignant neoplasm TECHNIQUE: Multiplanar, multisequence images of the brain and brainstem is performed without and with IV contras t, utilizing 7 mL intravenous Gadavist . FINDINGS: Diffusion weighted images demonstrate no evidence of a recent infarct or other diffusion ab normality. Ventricles and sulci within normal limits in size for patient's age. Right-sided craniotom y defect is redemonstrated. There is round fairly homogeneous enhancing right anterior middle cranial fossa mass with extension t o the inferior right frontal lobe and local mass effect measuring 4.8 cm transversely by 4.0 cm AP di ameter by 4 4.3 cm craniocaudal diameter axial image 21 and coronal image 21. There is persistent [place] rounding T2 hyperintense signal or vasogenic edema. There is local mass effect with slight midline sh ift remaining present. Lesion almost certainly extra-axial with mass effect on the right frontal lobe versus expansion. No significant change from prior. Stable 10 x 8 mm right parietal subcortical increased T2 signal axial image 19 series 501 without en hancement from most recent prior MRI. Stable 6 x 4 mm posterior left temporal enhancement or enhancing lesion axial image 22 series 702. Stable 3 mm enhancing lateral right cerebellar punctate focus axial image 15. No new enhancing lesions clearly seen. Midline structures redemonstrate normal morphology. The craniocervical junction remains within betina l limits. The dural venous sinuses remaining patent. Asymmetric right-sided proptosis is redemonstrated. Visualized paranasal sinuses are clear. Increased fluid signal bilateral mastoid air cells is redemonstrated. IMPRESSION: No significant change from most recent MRI. Dominant lesion with local mass effect and sl ight midline shift is stable. Additional smaller enhancing foci are stable. Postsurgical changes rede monstrated. No new or enlarging enhancing lesions are present.
== END | disposition home or self-care (01) ==
LOC: RADMRIMAIN 12:15
PROVIDERS: ATTEND Internal Medicine Hematology & Oncology
DX: C34.31 Malignant neoplasm of lower lobe, right bronchus or lung (principal); C79.31 Secondary malignant neoplasm of brain
CPT/HCPCS: 70553; A9585